=== PATIENT | female | born 1935 | race Caucasian/White ===

== ENCOUNTER 2016-09-01 10:41 | Outpatient (CLI) | payer MEDICARE ==
[~2016-09-01] VITALS: Ht 157.5 cm; Wt 58.2 kg
[~2016-09-01 10:41] MED LIST: ARICEPT10 MG PO; CELEXA10 MG PO; SYNTHROID88 MCG PO
[2016-09-01 12:03] VITALS: Ht 157.5 cm; Wt 58.2 kg
== END 2016-09-01 12:00 | disposition home or self-care (01) ==
LOC: D.OPS 10:41
DX: M81.0 Age-related osteoporosis without current pathological fracture (principal)

== ENCOUNTER 2017-03-10 09:35 | Outpatient (CLI) | payer MEDICARE ==
[2017-03-10 10:18] VITALS: BP 136/67; Ht 157.5 cm
== END 2017-03-10 10:00 ==
LOC: D.OPS 09:35
DX: M81.0 Age-related osteoporosis without current pathological fracture (principal)

== ENCOUNTER 2017-09-08 12:28 | Outpatient (CLI) | payer MEDICARE ==
[~2017-09-08] VITALS: Ht 157.5 cm; Wt 63.6 kg
[2017-09-08 13:42] VITALS: BP 120/69; Ht 157.5 cm; Wt 63.6 kg
== END 2017-09-08 13:40 | disposition home or self-care (01) ==
LOC: D.OPS 12:28
DX: M81.0 Age-related osteoporosis without current pathological fracture (principal)

== ENCOUNTER 2018-04-27 12:28 | Outpatient (CLI) | payer MEDICARE ==
[~2018-04-27] VITALS: Ht 157.5 cm; Wt 63.6 kg
[2018-04-27 15:05] VITALS: Ht 157.5 cm; Wt 63.6 kg
== END 2018-04-27 14:05 | disposition home or self-care (01) ==
LOC: D.OPS 12:28
DX: M81.0 Age-related osteoporosis without current pathological fracture (principal); Z01.812 Encounter for preprocedural laboratory examination

== ENCOUNTER 2018-09-13 12:30 | Outpatient (CLI) | payer MEDICARE ==
[~2018-09-13] VITALS: Ht 157.5 cm; Wt 65.9 kg
[2018-09-13 12:56] VITALS: BP 108/60; Ht 157.5 cm; Wt 65.9 kg
== END 2018-09-13 13:20 | disposition home or self-care (01) ==
LOC: D.OPS 12:30
PROVIDERS: ATTEND Family Medicine
DX: M18.0 Bilateral primary osteoarthritis of first carpometacarpal joints (principal)